=== PATIENT | male | born 1955 | race Caucasian/White ===

== ENCOUNTER 2019-12-14 06:01 | Day surgery (SDC) | payer OTHER ==
--- NOTE | 2019-12-13 15:46 | PCM.PREANE ---
Preanesthetic Assessment - Procedure Proposed Procedure: Left Reverse Total Shoulder Arthroplasty - Anesthesia/Transfusion/Family Hx Anesthesia History: Prior Anesthesia Without Reaction Family History of Anesthesia Reaction: No Transfusion History: No Prior Transfusion(s) Intubation History: Unknown - Review of Systems General: No Symptoms Pulmonary: No Symptoms (Quit chewing 2014, ETOH: occasionally) Cardiovascular: No Symptoms (HTN, Elevated cholesterol, CAD) Gastrointestinal: No Symptoms Neurological: No Symptoms Other: Reports: Liver Problems (History of elevated liver enzymes(2013)) - Physical Assessment NPO Status Date: 12/13/19 NPO Status Time: 22:00 Vital Signs: HR:72 Sat:96% Temp:97 Resp:16 B/P:119/83 Height: 1.83 m Weight: 92 kg ASA Class: 2 Mental Status: Alert & Oriented x3 Airway Class: Mallampati = 2 Dentition: Reports: Normal Dentition, Canones(s), Caries Thyro-Mental Finger Breadths: 3 Mouth Opening Finger Breadths: 3 ROM/Head Extension: Full Lungs: Clear to Auscultation, Normal Respiratory Effort Cardiovascular: Regular Rate, Regular Rhythm, No Murmurs, Irregular Rhythm (pac noted on occasion.) - Lab Values: Laboratory Last Values SARS-CoV-2 (PCR) Not detected (NOT DETECT) 12/11/19 10:30 MRSA (PCR) Negative 11/24/19 10:04 All labs reviewed and noted and within acceptable ranges to proceed with scheduled procedure. - Imaging/EKG Impressions: EKG: SR rate=68, PAC's CXR: Mild atelectasis in right middle lobe. - Allergies Allergies/Adverse Reactions: Allergies Allergy/AdvReac Type Severity Reaction Status Date / Time No Known Allergies Allergy Verified 12/13/19 15:00 - Anesthesia Plan Pre-Op Medication Ordered: None - Acknowledgements Anesthesia Type Planned: General Anesthesia (Left ISB under US guidance for post operative pain control requested by Dr. Ordonez.) Pt an Appropriate Candidate for the Planned Anesthesia: Yes Alternatives and Risks of Anesthesia Discussed w Pt/Guardian: Yes Pt/Guardian Understands and Agrees with Anesthesia Plan: Yes PreAnesthesia Questionnaire HEENT History: Reports: Hard of Hearing, Other (See Below) Other HEENT History: hearing aids Cardiovascular History: Reports: CAD, Hypertension Respiratory History: Reports: None Gastrointestinal History: Reports: Other (See Below) Other Gastrointestinal History: elevated LFTs Genitourinary History: Reports: None CRUTCH MAKER History: Reports: None Musculoskeletal History: Reports: Osteoarthritis, Other (See Below) Other Musculoskeletal History: DJD, ulnar sprain, right shoulder RC arthropathy Neurological History: Reports: None Psychiatric History: Reports: None Endocrine/Metabolic History: Reports: None Hematologic History: Reports: None Immunologic History: Reports: None Oncologic (Cancer) History: Reports: None Dermatologic History: Reports: None - Infectious Disease History Infectious Disease History: Reports: None - Past Surgical History Head Surgeries/Procedures: Reports: None HEENT Surgical History: Reports: None Cardiovascular Surgical History: Reports: None Respiratory Surgical History: Reports: None GI Surgical History: Reports: Appendectomy, Colonoscopy Female Surgical History: Reports: None Male Surgical History: Reports: None Endocrine Surgical History: Reports: None Neurological Surgical History: Reports: None Musculoskeletal Surgical History: Reports: Hip Replacement, Knee Replacement, Shoulder Surgery, Other (See Below) Other Musculoskeletal Surgeries/Procedures:: Right knee replacement, Right rotator cuff Oncologic Surgical History: Reports: None Dermatological Surgical History: Reports: None - SUBSTANCE USE Smoking Status *Q: Former Smoker Days Per Week of Alcohol Use: 5 Number of Drinks Per Day: 1 Total Drinks Per Week: 5 Recreational Drug Use History: No - HOME MEDS Home Medications: Home Meds Multivitamin 1 tab PO DAILY 12/13/19 [History] Mv-Mn/Iron/Folic Acid/Herb 190 [Vitamin D3 Complete Caplet] 1 tab PO DAILY 12/13/19 [History] lisinopriL [Lisinopril] 5 mg PO DAILY 12/13/19 [History] Aspirin 325 mg PO DAILY #40 tab 12/14/19 [Rx] Cyclobenzaprine [Flexeril] 10 mg PO BID PRN #20 tab 12/14/19 [Rx] oxyCODONE 5 - 10 mg PO Q4H PRN #60 tab 12/14/19 [Rx] - CURRENT (IN HOUSE) MEDS Current Meds: Current Medications Lactated Ringer's (Ringers, Lactated) 1,000 mls @ 125 mls/hr IV ASDIRECTED LISA Stop: 12/14/19 23:00 Lidocaine/Sodium Bicarbonate (Buffered Lidocaine 1% In Ns 8.4%) 0.25 ml IDERM ONETIME PRN PRN Reason: Prior to IV Start Stop: 12/14/19 18:00 Sodium Chloride (Saline Flush) 10 ml FLUSH ASDIRECTED PRN PRN Reason: Keep Vein Open Stop: 12/14/19 18:00
--- NOTE | 2019-12-13 15:56 | PCM.SN.2 ---
- Free Text/Narrative Note: Date: 12/14/2019 Time Out: 654 Start: 654 Stop: 709 Surgical Procedure: Left Reverse Total Shoulder Arthroplasty Diagnosis Left Rotator Cuff Arthropathy Current Procedure: Left interscalene block under US guidance for postoperative pain control requested by Dr. Ordonez. Patient chart reviewed, risk/benefits discussed with patient, consent obtained. Patient positioned supine, monitors/alarms on, oxygen placed via nasal cannula at 2 LPM. IV sedation administered: Versed 2mg IV, Fentanyl 50mcg IV given in preop prior to block placement. Left shoulder prepped with two chloropreps. Sterile drapes placed with aseptic technique noted. Under US guidance, left subclavian artery visualized along with the left brachial plexus. Plexus followed up to C6 cricoid level, and area localized with 2mls of 1% lidocaine. 22gauge 2 inch stimiplex needle advanced under US with 0.6mV with stimulation of biceps noted. Good stimulation noted with decreased voltage and absent at 0.3mVs. 1ml of Normal Saline injected with loss of stimulation noted to confirm needle not placed intraneurally. Incremental dosing of 5mls with negative aspiration noted prior to each injection of 0.5% ropivacaine with 1:200,000 epinephrine. Total volume=30mls. Please refer to nurses noted for vital signs. Tereza Carroll CRNA
[~2019-12-14 06:01] MED LIST: EPINEPHrine 1 MG/ML SDV ONE; Lidocaine 1% 4 ML ONE; Ropivacaine 0.5% 5 MG/ML 30 ML SDV ONE
[2019-12-14] MEDS ORDERED: Lactated Ringers 1,000 ML ONE (06:28)
[2019-12-14] MEDS ORDERED: Dexamethasone 4 MG/ML 5 ML MDV ONE (06:28)
[2019-12-14] MEDS ORDERED: Ketorolac 30 MG/ML SDV ONE (06:28)
[2019-12-14] MEDS ORDERED: Lidocaine 1% 4 ML ONE (06:28)
[2019-12-14] MEDS ORDERED: Ondansetron 4 MG/2 ML SDV ONE (06:28)
[2019-12-14] MEDS ORDERED: Rocuronium 50 MG/5 ML Vial ONE (06:28)
[2019-12-14] MEDS ORDERED: fentaNYL 250 MCG/5 ML SDV ONE (06:29)
[2019-12-14] MEDS ORDERED: Propofol 200 MG/20 ML SDV ONE (06:29)
[2019-12-14] MEDS ORDERED: Midazolam 1 MG/ML 2 ML SDV ONE (06:29)
[2019-12-14] MEDS ORDERED: Bupivacaine 0.25% 10 ML SDV ONE (06:41)
[2019-12-14] MEDS ORDERED: Lidocaine 1%/Sod Bicarbonate in NS 8.4% 1 ML Syringe IDERM PRN (07:00)
[2019-12-14] MEDS ORDERED: Sodium Chloride 0.9% 10 ML Syringe FLUSH PRN (07:00)
[2019-12-14] MEDS ORDERED: Lactated Ringers 1,000 ML IV SCH (07:00)
[2019-12-14] MEDS ORDERED: ePHEDrine 50 MG/ML SDV IVPUSH PRN (07:50)
[2019-12-14] MEDS ORDERED: Ondansetron 4 MG/2 ML SDV IVPUSH PRN (07:50)
[2019-12-14] MEDS ORDERED: fentaNYL 100 MCG/2 ML SDV IVPUSH PRN (07:50)
[2019-12-14] MEDS ORDERED: HYDROmorphone 0.5 MG/0.5 ML Syringe IVPUSH PRN (07:52)
[2019-12-14] MEDS ORDERED: ePHEDrine Sulfate/0.9% NaCl/Pf 25 MG/5 ML SYRINGE IV ONE (07:54)
[2019-12-14] MEDS: Vancomycin 1 GM SDV ONE ×2 (08:02→08:30)
[2019-12-14] MEDS ORDERED: Racepinephrine 2.25% 0.5 ML Neb Soln NEB PRN (08:03)
[2019-12-14] MEDS ORDERED: Sodium Chloride 0.9% Inhalation Soln 3 ML Neb INH PRN (08:03)
[2019-12-14] MEDS ORDERED: HYDROmorphone 0.5 MG/0.5 ML Syringe ONE (08:47)
--- NOTE | 2019-12-14 09:19 | PCM.POSTAN ---
POST ANESTHESIA ASSESSMENT - MENTAL STATUS Mental Status: Alert - VITAL SIGNS Vital Signs: Last Vital Signs Temp 36.4 C 12/14/19 09:15 Pulse 71 12/14/19 09:15 Resp 19 12/14/19 09:15 BP 127/73 12/14/19 09:15 Pulse Ox 100 12/14/19 09:15 - RESPIRATORY Respiratory Status: Respiratory Rate WNL, Airway Patent, O2 Saturation Stable, Supplemental Oxygen - CARDIOVASCULAR CV Status: Pulse Rate WNL, Blood Pressure Stable - GASTROINTESTINAL GI Status: No Symptoms - POST OP HYDRATION Hydration Status: Adequate & Stable
--- NOTE | 2019-12-14 10:38 | PCM48HPAN ---
Post Anesthesia Note - EVALUATION WITHIN 48HRS OF ANESTHETIC Vital Signs in Normal Range: Yes Patient Participated in Evaluation: Yes Respiratory Function Stable: Yes Airway Patent: Yes Cardiovascular Function Stable: Yes Hydration Status Stable: Yes Pain Control Satisfactory: Yes Nausea and Vomiting Control Satisfactory: Yes Mental Status Recovered: Yes Vital Signs: Last Vital Signs Temp 36.6 C 12/14/19 10:10 Pulse 70 12/14/19 10:10 Resp 16 12/14/19 10:10 BP 104/68 12/14/19 10:10 Pulse Ox 98 12/14/19 10:10
[2019-12-14] MEDS ORDERED: oxyCODONE 5 MG Tab PO PRN ×2 (12:19→12:22)
[2019-12-14 13:49] VITALS: BP 108/72; PULSE 64
--- NOTE | 2019-12-22 11:58 | PCM.OPNOTE ---
- General Post-Op/Procedure Note Date of Surgery/Procedure: 12/14/19 Operative Procedure(s): left reverse total shoulder arthroplasty Pre Op Diagnosis: left shoulder rotator cuff tear arthropathy Post-Op Diagnosis: Same Anesthesia Technique: General ET Tube, Regional Block Primary Surgeon: Tong Ordonez Anesthesia Provider: Tereza Carroll Hydrometeorologist: Agatha Demarco Hydrometeorologist: Lubna Quiñones EBL in mLs: 200 Complications: None Condition: Good Free Text/Narrative:: 14 stem 36+6 28 baseplate 4mm poly
--- NOTE | 2019-12-22 12:46 | OR ---
DATE OF OPERATION: 12/14/2019 SURGEON: Tong Ordonez MD OPERATION PERFORMED: Left reverse total shoulder arthroplasty. PREOPERATIVE DIAGNOSIS: Left shoulder rotator cuff tear arthropathy. POSTOPERATIVE DIAGNOSIS: Left shoulder rotator cuff tear arthropathy. ANESTHESIA: General endotracheal intubation with regional interscalene block. ANESTHESIA PROVIDER: Tereza Carroll CRNA ASSISTANTS: Agatha Demarco PA-C and Lubna Hernández LPN. ESTIMATED BLOOD LOSS: 200 mL. COMPLICATIONS: None. CONDITION: Stable. IMPLANT: 1. Ronald size 14 humeral stem. 2. [place] size 36 +6 Glenosphere. 3. [place] size 28 mm concentric base plate. 4. Ronald size 4 mm polyethylene insert. DESCRIPTION OF PROCEDURE: The patient was identified in the preoperative holding area where proper site was marked and identified by the surgeon. The patient was taken back to the operative theater where after adequate anesthesia, the patient's left upper extremity was sterilely prepped and draped in the usual sterile fashion. OR time-out was performed. The patient received 2 g IV Ancef. Standard deltopectoral incision was made. This was then taken down to the cephalic vein. The cephalic vein was identified and was retracted laterally with the deltoid. The clavipectoral fascia was incised and the conjoined tendon was retracted medially. Anterior humeral circumflex vessels were then ligated. Biceps tenodesis was then performed near the level of the pectoralis. Biceps tenotomy was then performed proximal to this and was resected all the way back to the level of the glenoid. Peel down of the subscapularis was then done and the humeral head was dislocated. Neck cut was then completed and found to be adequate. At this time, anterior and posterior glenoid retractors were placed. Circumferential removal of any remaining labrum as well as a synovectomy was performed at this time. I had adequate visualization of the glenoid and the guidepin was placed in the center-center position with roughly 10 degrees of inferior tilt. The 28-mm concentric reamer was then utilized until there was a good spinal center with cancellous bone inferiorly. At this time, the 20-mm glenoid baseplate was compressed using the central compression screw and inferior and superior locking screw were then placed and found to have adequate purchase on the glenoid. The 36 +6 Glenosphere was then impacted into place. Attention was turned to the humerus. Starting with a 10 broach, I was able to broach up to a size 14 which was found to be rotationally and vertically stable. Trial implants were then placed after the calcar planer was utilized and brought through range of motion. The patient's shoulder was stable throughout range of motion. C-arm fluoroscopy showed the trial implants to be in proper position and alignment. The shoulder was then dislocated and the components were constructed on the back table and then impacted into the humerus in mono block form. The shoulder was then relocated. C-arm fluoroscopy was then utilized again to make sure it was in proper position with no fracture. It was in good position. At this time, Irrisept was irrigated through the shoulder along with 1 L of normal saline. Topical tranexamic acid and vancomycin powder were applied. 2-0 Vicryl was used subcutaneously, Prineo was used for the skin. The patient tolerated the procedure well, was sent to PACU in stable condition. MMODAL /[id number]
--- NOTE | 2020-01-18 12:09 | CR ---
"PROCEDURE INFORMATION: Exam: FL Fluoroscopy, Up to 1 Hour Physician Time; Radiologist Not Present For Fluoroscopy Exam date and time: 12/14/2019 8:25 AM Age: 64 years old Clinical indication: Condition or disease; Condition/disease: Left total shoulder replacement TECHNIQUE: Imaging protocol: Fluoroscopy , up to 1 hour physician or other qualified health adult day care worker time. This radiologist did not supervise this procedure. Exam supervised by facility personnel. Report for radiation dosage reporting and documentation only. COMPARISON: No relevant prior exams. RADIATION DOSE METRICS: Fluoroscopy time (seconds): 5.6 seconds Number of fluoro spot images: 6 Reference air kerma (TRACI): Not provided. Cumulative radiation dose: 0.88 mGy FINDINGS: Procedural imaging: Placement a left shoulder arthroplasty. Osseous structures and prosthetic components are in anatomic alignment. Notes: Fluoroscopy supervised by facility personnel. See also separate procedure report. IMPRESSION: Fluoroscopy dosage documentation. Thank you for allowing us to participate in the care of your patient. Dictated and Authenticated by: Andrea Pompa MD GRESS, MARK | Final Radiology Report CONFIDENTIALITY STATEMENT This report is intended only for use by the referring physician, and only in accordance with law. If you received this in error, call [phone]. Page 2 of 2 01/18/2020 11:37 AM Central Time ([place] & [place]) SHAQ"
--- NOTE | 2020-01-18 12:10 | CR ---
PROCEDURE INFORMATION: Exam: XR Left Shoulder Exam date and time: 12/14/2019 8:57 AM Age: 64 years old Clinical indication: Device placement; Joint replacement hardware; Patient HX: Post-op TECHNIQUE: Imaging protocol: XR Left shoulder. Views: 1 view. COMPARISON: MR Shoulder wo Cont Lt 08/28/2019 10:55 AM FINDINGS: Bones/joints: Again noted is the left shoulder prosthesis. Prosthetic components and osseous structures are in anatomic alignment. No fractures or dislocations. Soft tissues: Normal. IMPRESSION: Shoulder prosthesis in anatomic alignment. Thank you for allowing us to participate in the care of your patient. Dictated and Authenticated by: Andrea Pompa MD 01/18/2020 11:42 AM Central Time ([place] & [place]) SHAQ
== END 2019-12-14 13:30 | disposition home or self-care (01) ==
LOC: JD.SDS 06:01 → EDSTATUS 08:00 → JD.SDS 13:30
PROVIDERS: ATTEND Orthopaedic Surgery
DX: M75.102 Unspecified rotator cuff tear or rupture of left shoulder, not specified as traumatic (principal); M19.012 Primary osteoarthritis, left shoulder; I10 Essential (primary) hypertension; E78.00 Pure hypercholesterolemia, unspecified; I25.10 Atherosclerotic heart disease of native coronary artery without angina pectoris; Z90.89 Acquired absence of other organs; Z98.890 Other specified postprocedural states; Z79.899 Other long term (current) drug therapy; Z79.82 Long term (current) use of aspirin; Z87.891 Personal history of nicotine dependence; Z01.812 Encounter for preprocedural laboratory examination; Z20.828 Contact with and (suspected) exposure to other viral communicable diseases
CPT/HCPCS: 23474; 73020; 76000; 87635; 87641; 97110; 97161; C1713; C1776; J0171; J1100; J1170; J1885; J2001; J2250; J2370; J2405; J2704; J2710; J2795; J3010; J3370; J7120; 01638; 64415; J3490; U0002

== ENCOUNTER 2023-06-25 06:47 | Emergency (ER) | payer MEDICARE, BC ==
[2023-06-25 07:32] LABS: BASOPHILS PERCENT AUTO 0.3 % (0.0-1.0); EOSINOPHILS PERCENT AUTO 0.3 % (0.0-6.0); HEMATOCRIT 39.1 % (42.0-52.0); HEMOGLOBIN 13.5 gm/dl (14.0-18.0); IMMATURE GRAN ABSOLUTE AUTO 0.02 K/mm3 (0.00-0.05); IMMATURE GRAN PERCENT AUTO 0.2 % (0.0-0.4); LYMPHOCYTES ABSOLUTE AUTO 0.5 K/mm3 (1.0-4.8); MEAN CORPUSCULAR HEMOGLOBIN 37.3 pg (28.0-32.0); MEAN CORPUSCULAR HGB CONC 34.5 g/dl (32.0-36.0); MEAN PLATELET VOLUME 9.3 fl (9.4-12.4); MONOCYTES ABSOLUTE AUTO 0.4 K/mm3 (0.0-0.8); NEUTROPHILS PERCENT AUTO 89.2 % (41.0-71.0); PLATELET COUNT,PLT 146 K/mm3 (150-400); RED BLOOD CELL COUNT 3.62 M/mm3 (4.52-5.90); WHITE BLOOD CELL COUNT,WBC 9.01 K/mm3 (3.9-11.3)
[2023-06-25 08:04] LABS: A/G RATIO 0.9 (1-2); ALBUMIN 3.5 g/dl (3.4-5.0); ANION GAP 13.9 (5-15); BILIRUBIN TOTAL 1.1 mg/dL (0.2-1.0); BUN/CREATININE RATIO 9.2 (14-18); CALCIUM 8.9 mg/dL (8.5-10.1); CREATININE 1.2 mg/dL (0.7-1.3); EST CRCL DRUG DOSING (CG) 65.56 mL/min; POTASSIUM,K 3.9 mEq/L (3.5-5.1); PROTEIN TOTAL,TP 7.5 g/dl (6.4-8.2)
[2023-06-25] MEDS: Iopamidol 612 MG/ML 100 ML Bottle IVPUSH ONE (08:28)
[2023-06-25] MEDS: Sodium Chloride 0.9% 10 ML Syringe FLUSH PRN (08:28)
[2023-06-25 10:30] LABS: APPEARANCE,URINE CLEAR (Clear); BILIRUBIN,URINE NEGATIVE (Negative); COLOR,URINE YELLOW (Yellow); GLUCOSE,URINE NEGATIVE (Negative); KETONES,URINE 1+ (Negative); LEUKOCYTE ESTERASE,URINE NEGATIVE (Negative); NITRITE,URINE NEGATIVE (Negative); OCCULT BLOOD,URINE NEGATIVE (Negative); PH,URINE 7.5 (5.0-8.0); PROTEIN,URINE NEGATIVE (Negative)
[2023-06-25 11:09] VITALS: BP 141/83; PULSE 111
== END 2023-06-25 11:00 | disposition home or self-care (01) ==
LOC: JD.ED 06:47
DX: R10.84 Generalized abdominal pain (principal); I10 Essential (primary) hypertension; I25.10 Atherosclerotic heart disease of native coronary artery without angina pectoris; Z79.01 Long term (current) use of anticoagulants; Z79.899 Other long term (current) drug therapy
CPT/HCPCS: 36415; 74177; 74177-26; 80053; 81003; 83605; 85025; 99284; J3490; Q9967

== ENCOUNTER 2023-12-06 04:43 | Emergency (ER) | payer MEDICARE, BC ==
[2023-12-06 05:33] LABS: BASOPHILS PERCENT AUTO 0.6 % (0.0-1.0); EOSINOPHILS ABSOLUTE AUTO 0.1 K/mm3 (0.0-0.4); EOSINOPHILS PERCENT AUTO 1.7 % (0.0-6.0); HEMATOCRIT 30.5 % (42.0-52.0); HEMOGLOBIN 10.9 gm/dl (14.0-18.0); IMMATURE GRAN ABSOLUTE AUTO 0.02 K/mm3 (0.00-0.05); IMMATURE GRAN PERCENT AUTO 0.4 % (0.0-0.4); LYMPHOCYTES ABSOLUTE AUTO 1.1 K/mm3 (1.0-4.8); LYMPHOCYTES PERCENT AUTO 21.9 % (24.0-44.0); MEAN CORPUSCULAR HGB CONC 35.7 g/dl (32.0-36.0); MEAN CORPUSCULAR VOLUME 106.3 fl (83.0-99.0); MEAN PLATELET VOLUME 9.7 fl (9.4-12.4); MONOCYTES ABSOLUTE AUTO 0.7 K/mm3 (0.0-0.8); MONOCYTES PERCENT AUTO 14.4 % (0.0-8.0); NEUTROPHILS ABSOLUTE AUTO 2.9 K/mm3 (1.8-7.7); PLATELET COUNT,PLT 156 K/mm3 (150-400); RED BLOOD CELL COUNT 2.87 M/mm3 (4.52-5.90); WHITE BLOOD CELL COUNT,WBC 4.79 K/mm3 (3.9-11.3)
[2023-12-06] MEDS: Sodium Chloride 0.9% 1,000 ML IV SCH (05:34)
[2023-12-06 05:57] LABS: ALBUMIN 3.4 g/dl (3.4-5.0); ANION GAP 11.4 (5-15); BILIRUBIN TOTAL 0.6 mg/dL (0.2-1.0); BUN/CREATININE RATIO 13.3 (14-18); C-REACTIVE PROTEIN 0.22 mg/dL (<0.30); CALCIUM 8.7 mg/dL (8.5-10.1); CREATININE 0.9 mg/dL (0.7-1.3); EST CRCL DRUG DOSING (CG) 90.01 mL/min; MAGNESIUM 1.5 mg/dL (1.8-2.4); POTASSIUM,K 4.4 mEq/L (3.5-5.1); PROTEIN TOTAL,TP 6.9 g/dl (6.4-8.2)
[2023-12-06 06:08] LABS: INR 1.13; PROTHROMBIN TIME 11.9 SECONDS (9.7-12.0)
[2023-12-06 06:10] LABS: PTT,PARTIAL THROMBOPLSTIN TIME 27.9 SECONDS (21.7-31.4)
[2023-12-06 07:00] VITALS: BP 122/78; PULSE 75
[2023-12-06 07:07] LABS: FOLIC ACID 18.5 ng/mL (8.6-58.9)
== END 2023-12-06 06:57 | disposition home or self-care (01) ==
LOC: JD.ED 04:43
DX: I95.1 Orthostatic hypotension (principal); D64.9 Anemia, unspecified; K62.5 Hemorrhage of anus and rectum; I10 Essential (primary) hypertension; I48.91 Unspecified atrial fibrillation; I25.10 Atherosclerotic heart disease of native coronary artery without angina pectoris; Z86.010 Personal history of colon polyps; Z79.899 Other long term (current) drug therapy; Z79.01 Long term (current) use of anticoagulants
CPT/HCPCS: 36415; 80053; 82607; 82746; 83735; 83880; 84484; 85025; 85610; 85730; 86140; 86850; 86900; 86901; 93005; 96360; 99284; J7030; 93010; 99283